=== PATIENT | female | born 1955 | race Caucasian/White ===

== ENCOUNTER 2024-05-28 10:38 | Emergency (ER) | payer MEDICARE, SELFPAY ==
[2024-05-28 10:56] VITALS: BP 191/106
[2024-05-28 11:15] VITALS: BP 189/79; BMI 40.1
--- NOTE | 2024-05-28 11:41 | ED.GENMED ---
History of Present Illness
General
Chief Complaint: Nose Bleed
Source: patient
Exam Limitations: none
Time Seen by Provider: 05/28/24 11:04
Nursing documentation reviewed up to this point in time: agreed with
History of Present Illness
History of Present Illness:
Patient is a 68-year-old female who presents to the ER for evaluation of nosebleeds. She has hadfor the past several days. She typically does not get nosebleeds. She is not on blood thinners including no aspirin. She does have a history of high
blood pressure and takes hydrochlorothiazide every morning. She has been using a nasal spray however recently For the past several days due to runny nose. She denies any trauma lightheaded dizziness. She denies any headache. She reports that
she believes it started from her left nares but would also bleed from the right nares. This morning she lives in the [facility] and was coming down to the area for a family lunch. She had bleeding this morning which resolved with then when she
got to this area bleeding presented again which is what prompted her to come to the ER.
Review of Systems
Review of Systems
Allergies reviewed?: Yes
All Other Systems: ROS reviewed and negative except as documented in HPI and ROS
Constitutional: Reports no symptoms
EENT: Reports other (nose bleed for past several days prior to that runny nose )
Respiratory: Reports no symptoms
Cardiac: Reports no symptoms
ABD/GI: Reports no symptoms
Musculoskeletal: Reports no symptoms
Skin: Reports no symptoms
Neurological: Reports no symptoms
Psychiatric: Reports no symptoms
Phy Exam
General Physical Exam
General Presentation: no apparent distress
General age: appears stated age
General Skin: warm and dry
General Habitus: normal
General Mental: alert
ENT Exam
ENT Exam: other ( dried blood in bilateral nares no active bleeding no blood in posterior pharynx)
Eye Exam
Eye Exam: PERRL and EOMI
Eye Exam General: PERRL: bilateral and EOM intact: bilateral
Pupil Exam: Bilateral: round and reactive
Neurological Exam
Neurological Exam: alert and oriented x3
Musculoskeletal Exam
Musculoskeletal Exam: full ROM
Skin Exam
Skin Exam: normal color and warm/dry
Psychiatric Exam
Psychiatric Exam: normal mood/affect
Course
Orders/Labs/Results
Orders:
Orders
05/28/24 11:47
Complete Blood Count/With Diff Urgent
Comprehensive Metabolic Panel Urgent
PTT Urgent
Prothrombin Time Urgent
Abnormal Lab Results
05/28/24
11:47
WBC 13.2 H 10^3/uL
(4.8-10.8)
MPV 11.1 H fL
(7.4-10.4)
Abs Immat Gran (auto) 0.1 H 10^3/uL
(0-0.05)
Absolute Neuts (auto) 10.3 H 10^3/uL
(1.4-6.5)
Absolute Monos (auto) 0.7 H 10^3/uL
(0.1-0.6)
Neutrophils % 77.7 H %
(42.2-75.2)
Lymphocytes % 15.3 L %
(20.5-51.1)
Carbon Dioxide 32 H mmol/L
(22-30)
BUN 28 H mg/dl
(7-17)
Glucose 100 H mg/dl
(70-99)
05/28/24 11:47
05/28/24 11:47
Vital Signs
Initial and Last Documented VS:
Initial Vital Signs
Pulse Resp BP Pulse Ox
62 20 191/106 98
05/28/24 10:56 05/28/24 10:56 05/28/24 10:56 05/28/24 10:56
Last Documented Vital Signs
Temp Pulse Resp BP Pulse Ox
98.6 F 58 16 173/81 98
05/28/24 13:00 05/28/24 13:00 05/28/24 13:00 05/28/24 13:00 05/28/24 13:00
MDM/Problems Addressed
Differential Diagnosis Includes:
Not limited to epistaxis
MDM/Problems Addressed:
Patient is a 60-year-old female who presents to the ER with intermittent nosebleed for the past several days mostly from left nares. She denies any headache her blood pressure has been elevated she does report this but she is on
hydrochlorothiazide. She has been using nasal drops for the past several days because of runny nose. On exam there is no active bleeding I was able to cauterize the site of bleeding. She was monitored here with no further bleeding. She denies
any fever chills or febrile here with a temp of 98.6 taken by myself. Her white count is minimally elevated however no concerning signs of infection or infectious complaints. Her BUN was mildly elevated. Her hemoglobin and hematocrit and
platelets are normal.
she has been drinking fluids here in the ER and I instructed her to increase fluids at home. She is from the [facility] and wishes to follow-up with her ENT as an outpatient. Also discussed follow-up with her family doctor for further
evaluation of her blood pressure.
*Critical Care Note
Total Time (30-74mins, 75-104mins- exclusive of procedures): Not Applicable
ED Attending Note
-
Portions of this chart may have been created with voice recognition software.� Occasional wrong word or��sound alike� substitutions may have occurred due to the inherent limitations of voice recognition software.
Discharge Plan
Departure
Patient Disposition: Home (Routine Discharge)
Date of Disposition: 05/28/24
Time of Disposition: 12:45
Patient with high blood pressure during this ER visit?: Yes
Covid-19: Not Applicable
Discharge Problem:
Epistaxis
Instructions: Nosebleeds (DC), BLOOD PRESSURE
Prescriptions:
No Action
hydrochlorothiazide 25 mg Tablet
25 mg PO DAILY
loratadine [Claritin] 10 mg Tablet
10 mg PO DAILY
vitamin B complex Capsule
1 cap PO DAILY
omeprazole 20 mg Tablet,Delayed Release (Dr/Ec)
20 mg PO DAILY
Vitamin D (with calcium)
1 tab PO DAILY
Referrals:
Arthur Gambino DO [Family Provider] -
Activity Restrictions/Additional Instructions:
As discussed I was able to cauterize the area of bleeding. Do not blow your nose for the next 3 days. Try not to sneeze. Do not touch your nose. Follow-up with your survey researcher as needed in the next several days.
Your blood pressure was elevated here in the ER; have this rechecked by your family doctor next week. Continue to take your blood pressure medications. As discussed increase fluids. Return if any worsening of symptoms including worsening
nosebleeds headaches blurred vision chest pain shortness of breath or any further concerns
Interventions
Interventions:
*Risk Screen - Suicide Last Done: 05/28/24 13:00
*General Assessment Last Done: 05/28/24 13:00
*Neglect/Abuse Screening Last Done: 05/28/24 11:15
ED- Fall Risk Assessment Last Done: 05/28/24 13:00
*ED COVID-19 Vaccine History Last Done: 05/28/24 13:00
*Nursing Disposition Last Done: 05/28/24 13:03
ED-EENT Assessment Last Done: 05/28/24 11:15
Discharge Date and Time
Discharge Date/Time: 05/28/24 13:04
Print Language: [id number]
[2024-05-28 12:08] LABS: % Basophils 0.5 % (0-2); % Eosinophils 0.9 % (0-6); % Immature Granulocytes 0.5 % (0-0.5); % Lymphocytes 15.3 % (20.5-51.1); % Monocytes 5.1 % (1.7-9.3); % Neutrophils 77.7 % (42.2-75.2); Absolute Basophils 0.1 10^3/uL (0-0.2); Absolute Eosinophils 0.1 10^3/uL (0-0.7); Absolute Immature Granulocytes 0.1 10^3/uL (0-0.05); Absolute Monocytes 0.7 10^3/uL (0.1-0.6); Absolute Neutrophils 10.3 10^3/uL (1.4-6.5); Hematocrit 42.4 % (37.0-47.0); Hemoglobin 14.1 g/dL (12.0-16.0); Mean Corp Hgb Conc. 33.3 g/dL (33.0-37.0); Mean Corpuscular Hgb 27.6 pg (27.0-31.0); Mean Platelet Volume 11.1 fL (7.4-10.4); Nucleated Red Blood Cells % 0 %; Platelet Count 350 10^3/uL (130-400); Red Blood Cell Count 5.11 10^6/uL (4.20-5.40); White Blood Cell Count 13.2 10^3/uL (4.8-10.8)
[2024-05-28 12:13] LABS: INR 1.02; PT 13.2 Sec (11.4-14.6)
[2024-05-28 12:14] LABS: ALT (SGPT) 16 U/L (0-35); APTT 28.9 Sec (23.4-35.0); AST (SGOT) 22 U/L (14-36); Albumin 4.4 g/dl (3.5-5.0); Alkaline Phosphatase 91 U/L (38-126); Blood Urea Nitrogen 28 mg/dl (7-17); Calcium 9.8 mg/dl (8.4-10.2); Carbon Dioxide 32 mmol/L (22-30); Chloride 100 mmol/L (98-107); Estimated Creatinine Clearance 80 ml/min; Glucose 100 mg/dl (70-99); Potassium 4.6 mmol/L (3.5-5.1); Sodium 141 mmol/L (135-145); Total Bilirubin 0.6 mg/dl (0.2-1.3); Total Protein 7.1 g/dl (6.3-8.2); eGFR > 60.00
[2024-05-28 13:00] VITALS: BP 173/81
== END 2024-05-28 13:04 | disposition home or self-care (01) ==
LOC: EMR 10:38
PROVIDERS: Nurse Practitioner; EMERGENCY PHYSICIAN Student in an Organized Health Care Education/Training Program; FAMILY PHYSICIAN Internal Medicine
DX: R04.0 Epistaxis (principal); R09.89 Other specified symptoms and signs involving the circulatory and respiratory systems; R03.0 Elevated blood-pressure reading, without diagnosis of hypertension; Z88.1 Allergy status to other antibiotic agents; Z88.2 Allergy status to sulfonamides
CPT/HCPCS: 99283; 80053; 85025; 85610; 85730